=== PATIENT | female | born 1970 | race Caucasian/White ===

== ENCOUNTER 2021-09-04 14:44 | Outpatient (CLI) | payer OTHER, SELFPAY ==
--- NOTE | ~2021-09-04 | DEXA_ITS ---
Bone Density Report Name: Mikayla Solis Age: 51 Sex: Female Ethnicity: White Date of : 1970 Indication: postmenopausal; hysterectomy; rheumatoid arthritis; Referring Provider: GUANAKO CUNHA Study: Bone densitometry was performed. Exam Date: September 04, 2021 Accession number: [id number] Bone Density: Region BMD T-score Z-score Classification AP Spine (L1, L2, L3) 1.127 1.0 1.9 Normal Femoral Neck (Left) 0.806 -0.4 0.5 Normal Total Hip (Left) 0.977 0.3 0.9 Normal Total Hip Bilateral Avg 0.977 0.3 0.8 Normal Femoral Neck (Right) 0.744 -0.9 0.0 Normal Total Hip (Right) 0.975 0.3 0.8 Normal World Health Organization criteria for BMD impression classify patients as: Normal (T-score at or above -1.0), Osteopenia (T-score between -1.0 and -2.5), or Osteoporosis (T-score at or below -2.5). 10-year Fracture Risk: FRAX not reported because: All T-scores for Spine Total, Hip Total, Femoral Neck at or above -1.0 Clinical Information Provided by Patient: Has rheumatoid arthritis Has used the following medications: Vitamin D, Calcium Has the following medical conditions: Hysterectomy Patient maximum height was 65 Menopause Age: 37 No regular weight bearing exercise Drinks caffeinated beverages Onset of menses at age 8 Number of children 0 Impression: The patient has normal bone mass. Discussion: BONE DENSITY IS ABOVE THE MINIMUM DESIRABLE LEVEL AT ALL SKELETAL SITES TESTED. This patient?s bone mineral density is above the minimum desirable level (T-score -1.0 or better) at all sites measured. The patient should follow a healthful lifestyle (good nutrition with adequate calcium and vitamin D, and appropriate weight-bearing exercise). Follow-Up: Consider repeating this study in 5 years or sooner if there is some new clinical indication. Reported by: [facility] on 09/04/2021 3:21:00 PM. Reviewed, dictated and finalized at location ADenia ZAMARRIPA
--- NOTE | ~2021-09-04 | MM_ITS ---
EXAMINATION: MM screening jas BI w ivon HISTORY: Screening mammogram, family history of breast cancer in her sister. TECHNIQUE: Craniocaudal and mediolateral oblique 3-D tomosynthesis images were obtained and synthetic 2-D images were generated. CAD analysis was submitted and interpreted. COMPARISON: 01/25/2019, 05/09/2016, 05/08/2015 BREAST PARENCHYMAL COMPOSITION: The breasts are almost entirely fatty. FINDINGS: There is no evidence of suspicious mass, calcification, or architectural distortion to sugg est malignancy in either breast. There has been no suspicious interval change. IMPRESSION: 1. No mammographic evidence of malignancy. 2. Recommend routine screening mammography in one year. BI-RADS Category 1: Negative Reviewed, dictated and finalized at location A. DEALER
== END 2021-09-04 14:45 | disposition home or self-care (01) ==
PROVIDERS: PCP Internal Medicine; Visit Provider Nurse Practitioner
DX: Z12.31 Encounter for screening mammogram for malignant neoplasm of breast (principal); Z78.0 Asymptomatic menopausal state
CPT/HCPCS: 77063; 77067; 77080

== ENCOUNTER 2021-09-27 00:37 | Day surgery (SDC) | payer OTHER, SELFPAY ==
[2021-09-18 11:31] VITALS: BMI 47.7
[2021-09-27 09:06] VITALS: BP 156/88; PULSE 99; RESP 18; TEMP 36; O2SAT 98
[2021-09-27] MEDS: LACTATED RINGERS 1,000 ML 150 ML IV CONT (09:11)
--- NOTE | 2021-09-27 09:11 | WPDANESEPPF ---
Anes - Initial Pre Proc Eval Procedure: Operation Date: 09/27/21 10:00 Proposed Procedures p Screening Colonoscopy - Cassius Delong MD Date/Time: 09/27/21 09:11 Surgeon: Cassius Delong MD Pre Op Diagnosis: neoplasm screening Patient Data Age: 51 Gender: F Height: 1.64 m Weight: 127.4 kg Last Vital Signs Temp 36.0 C L 09/27/21 09:06 Pulse 99 09/27/21 09:06 Resp 18 09/27/21 09:06 BP 156/88 H 09/27/21 09:06 Pulse Ox 98 09/27/21 09:06 Allergies Allergy/AdvReac Type Severity Reaction Status Date / Time morphine Allergy Severe Headache Verified 09/27/21 09:04 aspirin Allergy Intermediate Hives Verified 09/27/21 09:04 meperidine AdvReac Intermediate Vomiting Verified 09/27/21 09:04 Home Medications Medication Instructions Recorded Confirmed Type albuterol sulfate 90 mcg/actuation 2 puff INHALATION Q4-6H PRN gm 09/07/19 09/18/21 History aerosol inhaler biotin 5,000 mcg disintegrating 5,000 mcg PO DAILY 09/07/19 09/18/21 History tablet evening primrose oil 500 mg capsule 500 mg PO QPM cap 09/07/19 09/18/21 History ferrous sulfate 325 mg (65 mg 325 mg PO DAILY 09/07/19 09/18/21 History iron) tablet folic acid 400 mcg tablet 0.4 mg PO DAILY 09/07/19 09/18/21 History multivitamin 1 tablet PO DAILY 09/07/19 09/18/21 History omega-3 fatty acids 1,000 mg 1,000 mg PO DAILY 09/07/19 09/18/21 History capsule cholecalciferol (vitamin D3) 25 1,000 unit PO DAILY cap 11/07/19 09/18/21 History mcg (1,000 unit) capsule psyllium husk 0.4 gram capsule 0.4 gm PO QPM 11/07/19 09/18/21 History vitamin E 400 unit capsule 400 unit PO BID 11/07/19 09/18/21 History bupropion HCl (smoking deter) 150 150 mg PO BID 12/20/19 09/18/21 History mg tablet,12 hr sustained-release(smoking deterrent) drospirenone (contraceptive) 4 mg 4 mg PO QPM 12/20/19 09/18/21 History (28) tablet ascorbic acid (vitamin C) 1,000 mg 1 gm PO DAILY 03/05/20 09/18/21 History tablet pyridoxine (vitamin B6) 100 mg 100 mg PO DAILY 03/05/20 09/18/21 History tablet blood sugar diagnostic #100 each 05/08/20 07/04/21 Rx blood-glucose meter #1 each 05/08/20 07/04/21 Rx lancets #50 each 05/09/20 07/04/21 Rx budesonide-formoterol HFA 80 2 puff INHALATION Q12H #10.2 gm 05/11/20 09/18/21 Rx mcg-4.5 mcg/actuation aerosol inhaler sitagliptin 50 mg tablet 50 mg PO DAILY #90 tablet 05/15/21 09/18/21 Rx atorvastatin 80 mg tablet 80 mg PO QHS #90 tablet 07/04/21 09/18/21 Rx levothyroxine 137 mcg tablet 137 mcg PO DAILY #90 tablet 07/10/21 09/18/21 Rx loratadine 10 mg tablet 10 mg PO DAILY #30 tablet 07/30/21 09/18/21 Rx losartan 50 mg tablet 50 mg PO DAILY #90 tablet 07/30/21 09/18/21 Rx hydrochlorothiazide 12.5 mg capsule 12.5 mg PO DAILY #90 cap 08/01/21 09/18/21 Rx meloxicam 15 mg tablet 15 mg PO DAILY #90 tablet 09/17/21 09/18/21 Rx amlodipine [Norvasc] 5 mg PO QPM 09/18/21 09/18/21 History calcium carb-mag oxide-zinc ox 1 tab-cap PO DAILY 09/18/21 09/18/21 History citalopram [Celexa] 40 mg PO QPM 09/18/21 09/18/21 History fluticasone propionate [Flonase 1 spray NASAL DAILY PRN 09/18/21 09/18/21 History Allergy Relief] montelukast 10 mg PO QPM 09/18/21 09/18/21 History oxybutynin chloride [Ditropan XL] 5 mg PO QPM 09/18/21 09/18/21 History hydroxyzine HCl 25 mg tablet 25 mg PO TID PRN #90 tablet 09/25/21 Rx Patient hx anesthesia problems: none Family hx anesthesia problems: none Results Review: All pre-operative results and documents have been reviewed as part of the pre-operative evaluation. [facility] Past Medical History Medical History Allergies Chicken pox Cholecystectomy planned 2014 Chronic bronchitis Chronic fatigue Edema GI disease Hyperlipidemia Hypertension Hypothyroidism Obstructive sleep apnea KRISTIE (obstructive sleep apnea) Osteoarthritis Ovarian cyst 1987 Overactive bladder Type 2 diabetes mellitus Surgi
[2021-09-27 09:13] LABS: Glucose Point of Care 156 mg/dl (65-105)
--- NOTE | 2021-09-27 09:15 | PM.HPGS ---
History of Present Illness History of Present Illness Consent: Risks, benefits, and alternatives have been discussed and questions answered. Patient agrees to proceed with procedure. Chief complaint: neoplasm screening Narrative: Mikayla Solis is a 51 year old female here for first screening colonoscopy Review of Systems Constitutional: Constitutional: Denies headache(s) and Denies weakness Eyes: Eyes: Denies blurry vision ENT: Reports Normal hearing present, Denies headache(s) and Denies neck pain Cardiovascular: Cardiovascular: Denies chest pain and Denies dyspnea Respiratory: Respiratory: Denies dyspnea Gastrointestinal: Gastrointestinal: Reports no additional gastrointestinal complaints Genitourinary: Genitourinary: Denies dysuria Musculoskeletal: Musculoskeletal: Denies neck pain Integumentary/Breasts: Skin/Breast: Denies dry skin Neurologic: Reports Normal hearing present, Denies headache(s) and Denies weakness Psychiatric: Psychiatric: Denies anxiety Endocrine: Endocrine: Denies change in body appearance Hematologic/Lymphatic: Hematologic/Lymphatic: Denies easy bleeding Allergic/Immunologic: Allergic/Immunologic: Denies urticaria PMFSH Past Medical History Medical History Allergies Chicken pox Cholecystectomy planned 2014 Chronic bronchitis Chronic fatigue Edema GI disease Hyperlipidemia Hypertension Hypothyroidism Obstructive sleep apnea KRISTIE (obstructive sleep apnea) Osteoarthritis Ovarian cyst 1987 Overactive bladder Type 2 diabetes mellitus Surgical History Surgical History H/O cataract extraction 2014 H/O: hysterectomy 2006 Family History Family History Father Diabetes mellitus Family history of coronary artery disease Cardiac arrest Sibling Family history of lung cancer Family history of malignant neoplasm of breast in first degree relative Patient's sister is in good health Patient's brother is in good health Mother Family history of lung cancer Other Family history of cardiovascular disease Family history of malignant neoplasm Family history of tuberculosis Hypertension Social History Social History Smoking status: Never smoker Alcohol intake: current Drinks per week: 6 Alcohol use details: MIXED DRINKS Substance use: never Substance use type: does not use Living arrangements: with family Spiritual care concerns: No Meds Home Medications and Allergies Home Medications Medication Instructions Recorded Confirmed Type albuterol sulfate 90 mcg/actuation 2 puff INHALATION Q4-6H PRN gm 09/07/19 09/18/21 History aerosol inhaler biotin 5,000 mcg disintegrating 5,000 mcg PO DAILY 09/07/19 09/18/21 History tablet evening primrose oil 500 mg capsule 500 mg PO QPM cap 09/07/19 09/18/21 History ferrous sulfate 325 mg (65 mg 325 mg PO DAILY 09/07/19 09/18/21 History iron) tablet folic acid 400 mcg tablet 0.4 mg PO DAILY 09/07/19 09/18/21 History multivitamin 1 tablet PO DAILY 09/07/19 09/18/21 History omega-3 fatty acids 1,000 mg 1,000 mg PO DAILY 09/07/19 09/18/21 History capsule cholecalciferol (vitamin D3) 25 1,000 unit PO DAILY cap 11/07/19 09/18/21 History mcg (1,000 unit) capsule psyllium husk 0.4 gram capsule 0.4 gm PO QPM 11/07/19 09/18/21 History vitamin E 400 unit capsule 400 unit PO BID 11/07/19 09/18/21 History bupropion HCl (smoking deter) 150 150 mg PO BID 12/20/19 09/18/21 History mg tablet,12 hr sustained-release(smoking deterrent) drospirenone (contraceptive) 4 mg 4 mg PO QPM 12/20/19 09/18/21 History (28) tablet ascorbic acid (vitamin C) 1,000 mg 1 gm PO DAILY 03/05/20 09/18/21 History tablet pyridoxine (vitamin B6) 100 mg 100 mg PO DAILY 03/05/20 1
[2021-09-27 09:34] VITALS: BP 119/66; PULSE 71; RESP 18; O2SAT 97
[2021-09-27 09:44] VITALS: BP 123/69; PULSE 71; RESP 15; O2SAT 98
[2021-09-27 09:54] VITALS: BP 127/71; PULSE 72; RESP 16; O2SAT 98
== END 2021-09-27 10:10 | disposition home or self-care (01) ==
PROVIDERS: PCP Internal Medicine; Visit Provider Internal Medicine Gastroenterology
PROC: 0DJD8ZZ Inspection of Lower Intestinal Tract, Via Natural or Artificial Opening Endoscopic (ICD-10-PCS; CPT 45378; principal; 2021-09-27 10:00)
DX: Z12.11 Encounter for screening for malignant neoplasm of colon (principal); K57.30 Diverticulosis of large intestine without perforation or abscess without bleeding; K64.8 Other hemorrhoids; R53.83 Other fatigue; E78.5 Hyperlipidemia, unspecified; I10 Essential (primary) hypertension; E03.9 Hypothyroidism, unspecified; G47.33 Obstructive sleep apnea (adult) (pediatric); M19.90 Unspecified osteoarthritis, unspecified site; N32.81 Overactive bladder; E11.9 Type 2 diabetes mellitus without complications; Z79.51 Long term (current) use of inhaled steroids; E66.01 Morbid (severe) obesity due to excess calories; Z68.42 Body mass index [BMI] 45.0-49.9, adult
CPT/HCPCS: 45378; 82948; J2001; J2704; J7120

== ENCOUNTER 2022-11-23 07:48 | Outpatient (CLI) | payer OTHER, SELFPAY ==
--- NOTE | ~2022-11-23 | MR_ITS ---
MRI of the brain Clinical History: Headache, visual disturbance Technique: Axial and sagittal T1-weighted images were acquired. These were followed by axial T2-weigh davey, diffusion weighted, gradient, and FLAIR images. Following intravenous administration of 20 cc Mu ltiHance gadolinium, T1-weighted fat-sat imaging was performed in the axial and coronal planes. Findings: There is no acute infarct, intracranial hemorrhage, or mass lesion. Minimal chronic white m atter changes noted in the periventricular white matter bilaterally. Ventricles and subarachnoid spaces are unremarkable. Orbits are unremarkable. Major intracranial flow voids are intact. There is small amount of fluid in right mastoid air cells. Remaining paranasal sin uses and right mastoid air cells are clear. No abnormal postcontrast enhancement identified. IMPRESSION: Minimal chronic white matter changes, otherwise unremarkable exam. Reviewed, dictated and finalized at [facility]. [employer]
== END 2022-11-23 07:49 | disposition home or self-care (01) ==
PROVIDERS: PCP Internal Medicine; Visit Provider Nurse Practitioner
DX: G43.909 Migraine, unspecified, not intractable, without status migrainosus (principal); H53.8 Other visual disturbances
CPT/HCPCS: 70553; A9577

== ENCOUNTER 2022-12-30 17:45 | Outpatient (CLI) | payer OTHER, SELFPAY ==
--- NOTE | ~2022-12-30 | MM_ITS ---
EXAMINATION: MM screening jas BI w ivon HISTORY: Screening mammogram TECHNIQUE: Craniocaudal and mediolateral oblique 3-D tomosynthesis images were obtained and synthetic 2-D images were generated. CAD analysis was submitted and interpreted. COMPARISON: 09/04/2021, 01/25/2019 bilateral screening mammogram examinations BREAST PARENCHYMAL COMPOSITION: The breasts are almost entirely fatty. FINDINGS: There is no evidence of suspicious mass, calcification, or architectural distortion to sugg est malignancy in either breast. There has been no suspicious interval change. IMPRESSION: 1. No mammographic evidence of malignancy. 2. Recommend routine screening mammography in one year. BI-RADS Category 1: Negative Reviewed, dictated and finalized at location A.
== END 2022-12-30 17:46 | disposition home or self-care (01) ==
PROVIDERS: PCP Internal Medicine; Visit Provider Nurse Practitioner
DX: Z12.31 Encounter for screening mammogram for malignant neoplasm of breast (principal)
CPT/HCPCS: 77063; 77067

== ENCOUNTER 2023-07-10 10:46 | Outpatient (CLI) | payer OTHER, SELFPAY ==
[2023-07-10 17:11] LABS: Basophils Percent Auto 0.3 % (0.2-1.2); Eosinophils Absolute Auto 0.1 K/mm3 (0-0.3); Eosinophils Percent Auto 0.7 % (0-4.4); Hemoglobin 12.6 g/dL (12.0-15.0); Immature Granulocyte Absolute 0.03 K/mm3 (0.00-0.031); Immature Granulocyte Percent A 0.4 % (0-0.5); Lymphocytes Absolute Auto 1.63 K/mm3 (0.9-3.2); Lymphocytes Percent Auto 23.4 % (18.3-44.2); Mean Corpuscular HGB Conc 31.5 g/dl (32-36); Mean Corpuscular Hemoglobin 28.6 pg (26-34); Mean Corpuscular Volume 90.7 fl (80-100); Mean Platelet Volume 11.2 fl (7.4-10.4); Monocytes Absolute Auto 0.5 K/mm3 (0.1-0.6); Neutrophils Absolute Auto 4.8 K/mm3 (1.3-6.7); Neutrophils Percent Auto 68.2 % (45.5-73.1); Platelet Count Result 253 k/mm3 (150-375); Red Blood Count 4.41 M/mm3 (4.2-5.4); Red Cell Distribution Width 12.9 % (11.5-14.5)
[2023-07-10 17:47] LABS: Vitamin D 25 Hydroxy 44.9 ng/mL
[2023-07-10 17:55] LABS: Creatinine Urine 48.7 mg/dL
[2023-07-10 18:06] LABS: Hemoglobin A1C 7.1 % (<5.7)
[2023-07-10 18:17] LABS: Anion Gap 5 mmol/L (8-16); Blood Urea Nitrogen 9 mg/dL (7-17); Calcium 9.1 mg/dL (8.4-10.2); Carbon Dioxide 31 mmol/L (22-30); Chloride 103 mmol/L (98-107); Cholesterol 147 mg/dL (0-200); Estimated Glomerular Filt Rate > 60; Glucose 133 mg/dL (65-110); HDL Direct 40 mg/dL; Potassium 3.9 mmol/L (3.4-5.0); Sodium 139 mmol/L (137-145); Triglycerides 129 mg/dL (<150)
[2023-07-10 18:27] LABS: LDL Cholesterol Direct 80 mg/dL
[2023-07-10 20:56] LABS: MALB Creatinine Ratio < 12.3 mg/g (0-30); Microalbumin Urine Random < 6.0 mg/L (0-16.7)
== END 2023-07-10 10:47 | disposition home or self-care (01) ==
LOC: ANHGOSHLAB 10:48
PROVIDERS: PCP Internal Medicine; Visit Provider Clinical Nurse Specialist
DX: E11.9 Type 2 diabetes mellitus without complications (principal); E55.9 Vitamin D deficiency, unspecified; E03.9 Hypothyroidism, unspecified
CPT/HCPCS: 36415; 80048; 80061; 82043; 82306; 82607; 83036; 84443; 85025

== ENCOUNTER 2023-07-27 14:53 | Outpatient (CLI) | payer OTHER, SELFPAY ==
[2023-07-27 19:52] LABS: CRP 0.8 mg/dL (<1.0)
[2023-07-27 20:07] LABS: Rheumatoid Factor < 12.0 IU/ML (<12)
[2023-07-27 21:25] LABS: Hemoglobin A1C 7.3 % (<5.7)
[2023-07-30 10:08] LABS: ANA Cascade Screen Negative (Negative)
== END 2023-07-27 14:54 | disposition home or self-care (01) ==
PROVIDERS: PCP Internal Medicine; Visit Provider Clinical Nurse Specialist
DX: M79.10 Myalgia, unspecified site (principal); E11.9 Type 2 diabetes mellitus without complications
CPT/HCPCS: 36415; 83036; 86038; 86140; 86430